=== PATIENT | female | born 1930 | race Caucasian/White ===

== ENCOUNTER → 2017-03-16 | Outpatient (CLI) | payer MEDICARE, BC ==
--- NOTE | 2017-03-16 15:23 | REP ---
PA and lateral chest: There are no comparisons. There is an incomplete inspiratory effort. There is significant interstitial coarsening diffusely bilaterally. This is nonspecific in the absence of comparison studies and could indicate chronic lung disease or acute lung disease such as bronchitis, ARDS, interstitial edema and pneumonia. Cardiac size is normal. The bryanna, mediastinum, bony thorax are unremarkable. [employer] shunt tubing is incidentally noted. Impression: Heavily coarsened interstitium, nonspecific. Signed by Joe Scott MD 03/16/2017 03:15 P
== END ==
LOC: M WUC 14:56
PROVIDERS: ATTEND Physician Assistant
DX: J20.9 Acute bronchitis, unspecified (principal)

== ENCOUNTER → 2019-01-24 | Outpatient (CLI) | payer MEDICARE, BC | LOC: M PLARAD 12:17 | PROVIDERS: ATTEND Family Medicine | DX: G40.909 Epilepsy, unspecified, not intractable, without status epilepticus (principal); G20 Parkinson's disease ==

== ENCOUNTER → 2019-05-01 | Outpatient (REF) | payer MEDICARE, BC ==
[2019-05-02 11:37] LABS: BASO # 0.1 10^3/uL (0.0-0.2); BASO % 0.9 % (0.0-1.0); EOS # 0.3 10^3/uL (0.0-0.5); HEMATOCRIT 40.1 % (42.0-52.0); HEMOGLOBIN 12.5 g/dl (13.5-17.5); LYMPH # 1.9 10^3/uL (1.5-5.0); LYMPH % 19.2 % (24.0-44.0); MEAN CORPUSCULAR HEMOGLOBIN 28.3 pg (27.0-33.0); MEAN CORPUSCULAR HGB CONC 31.2 g/dl (32.0-36.5); MEAN CORPUSCULAR VOLUME 90.9 fl (80.0-96.0); MONO # 1.1 10^3/uL (0.0-0.8); NEUTROPHILS # 6.3 10^3/uL (1.5-8.5); NEUTROPHILS % 62.3 % (36.0-66.0); PLATELET COUNT, AUTOMATED 355 10^3/uL (150-450); RED BLOOD COUNT 4.41 10^6/uL (4.30-6.10)
[2019-05-02 11:44] LABS: ALT/SGPT 15 U/L (12-78); BILIRUBIN,TOTAL 0.7 MG/DL (0.2-1.0); BLOOD UREA NITROGEN 22 MG/DL (7-18); CALCIUM LEVEL 9.2 MG/DL (8.8-10.2); CARBON DIOXIDE LEVEL 29 MEQ/L (21-32); CHLORIDE LEVEL 102 MEQ/L (98-107); CREATININE FOR GFR 0.94 MG/DL (0.70-1.30); GLOMERULAR FILTRATION RATE > 60.0 (>35); GLUCOSE, FASTING 82 MG/DL (70-100); POTASSIUM SERUM 4.9 MEQ/L (3.5-5.1); SODIUM LEVEL 137 MEQ/L (136-145); TOTAL PROTEIN 7.5 GM/DL (6.4-8.2)
== END ==
LOC: M SFHCCLAY 14:18
PROVIDERS: ATTEND Family Medicine
DX: G20 Parkinson's disease (principal); G40.909 Epilepsy, unspecified, not intractable, without status epilepticus
CPT/HCPCS: 80053; 85025; G0463

== ENCOUNTER → 2019-06-26 | Outpatient (CLI) | payer MEDICARE, BC | LOC: M CLY 14:32 | PROVIDERS: ATTEND Family Medicine | DX: R07.89 Other chest pain (principal); Z53.8 Procedure and treatment not carried out for other reasons ==

== ENCOUNTER → 2019-06-26 | Outpatient (CLI) | payer MEDICARE, BC ==
--- NOTE | 2019-06-26 15:45 | REP ---
Chest, single AP view with the patient sitting: Comparisons are 03/13/2018 and PA and lateral chest dated 03/16/2017. There is chronic diffuse interstitial coarsening, unchanged, compatible with chronic lung disease and fibrosis. There are no infiltrates, pleural effusions, masses or nodules. Cardiac size is normal. The bryanna, mediastinum, and skeletal structures are. Impression: There are no acute cardiopulmonary findings. There is chronic interstitial coarsening. Electronically Signed by Joe Scott MD 06/26/2019 03:36 P
== END ==
LOC: M CLY 14:41
PROVIDERS: ATTEND Family Medicine
DX: R07.89 Other chest pain (principal)
CPT/HCPCS: 71045; 90682; G0008; G0463